=== PATIENT | female | born 1980 | race Caucasian/White ===

== ENCOUNTER 2025-04-19 14:13 | Emergency (ER) | payer OTHER, SELFPAY ==
--- NOTE | ~2025-04-19 | CT_ITS ---
EXAMINATION: CT brain wo con COMPARISON: None HISTORY: HEADACHE/ANXIETY TECHNIQUE: Axial images were obtained through the brain without IV contrast. CT scan performed using dose optimization techniques including the following automated exposure control; adjustment of mA and/or kV; use of iterative reconstruction technique. Automatic exposure control was used to reduce radiation dose. Permanent radiation dose record is archived to PACS. FINDINGS: Adjacent to the left temporal lobe probable arachnoid cyst measures 2.5 x 2 cm, no acute infarct or hemorrhage, no midline shift. Mastoid air cells unremarkable. Sinuses and orbits unremarkable. No acute fracture. No significant facial or scalp soft tissue swelling evident. No radiopaque foreign body is seen. Impression: 1.No acute intracranial abnormality. Reviewed, dictated and finalized at location A. Impression: 1.No acute intracranial abnormality.
[2025-04-19 14:27] VITALS: BP 144/90; PULSE 135; RESP 24; TEMP 36.6; O2SAT 100
--- NOTE | 2025-04-19 14:28 | ECG_ITS ---
Test Date: 2025-04-19 14:36:48 Measurements Intervals [place] Rate: 129 P: 0 MO: 0 QRS: 84 QRSD: 106 T: 45 QT: 389 QTc: 570 Interpretive Statements CHALLENGING INTERPRETATION WITH BASELINE MOTION ARTIFACT SINUS TACHYCARDIA NONSPECIFIC ST AND T-WAVE ABNORMALITY ABNORMAL ECG No previous ECG available for comparison Electronically Signed On 04-20-2025 08:29:50 CDT by Bernardino Oneill M.D.
--- OUTSIDE RECORDS SUMMARY | 2025-04-19 15:15 | XMS_ITS | Clinical Summary ---
Author Organization [facility] Address [address] [place] [address] Care Team Providers Care Railway Patrol Officer Name Role Phone Dara Romero NP Primary Care Provider [phone] Allergies Active Allergy Reactions Criticality Noted Date Comments Sulfa Antibiotics Hives 08/19/2022 Medications * This document contains information received from the source organization and may not represent a complete record from that organization. omega-3 fatty acid (FISH OIL) 500 MG capsule Take 1 capsule (500 mg total) by mouth daily. Active lactobacillus (FLORANEX) tablet Take 1 tablet by mouth daily. Active multi vitamin/mineral s (THERA-M ENHANCED) tablet Take 1 tablet by mouth daily. Active hydrOXYzine (ATARAX) 25 MG tablet Take 1 tablet (25 mg total) by mouth nightly at bedtime. 02/09/2024 Active chlordiazePOXID E (LIBRIUM) 25 MG capsuleIndicati ons:Alcohol abuse 25 mg 4 times daily x 7 days followed by 25 mg three times daily for 7 days and then 25 mg twice daily for 7 days and then 25 mg daily 70 capsule 03/26/2024 Active Active Problems Problem Noted Date Diagnosed Date Acute hyperactive alcohol wi thdrawal delirium ([facility]) 03/26/2024 Alcohol withdrawal ([facility]) 03/14/2024 Alcohol abuse 05/16/2023 Other depression 05/16/2023 Chronic rhinosinusitis 09/01/2021 Anxiety 09/22/2020 Overview (09/22/2020): No panic attacks, anxiety. No guilty. No SI Assessment & Plan (09/22/2020 2:28 PM BAND SAW MARKER): Will check CBC and TSH. Will consider clonazepam low-dose as needed Resolved Problems Problem Noted Date Diagnosed Date Resolved Date Sore throat 06/08/2021 09/01/2021 Overview (06/08/2021): For 6 days. Chills. Painful swallowing. PND Assessment & Plan (06/08/2021 12:51 PM BAND SAW MARKER): Will start antibiotics since she is not better within a week Pain in a tooth or teeth 02/05/202103/2021 Overview (02/05/2021): Not better with amoxicillin. No F/C Assessment & Plan (02/05/2021 7:15 PM CDT): Likely from sinus infection Acute maxillary sinusitis 02/05/2021 Assessment & Plan (06/08/2021 12:51 PM BAND SAW MARKER): Sinus tenderness. Prior history of sinusitis in the past Assessment & Plan (02/05/2021 7:15 PM CDT): Will start clindamycin. Continue amoxicillin SOB (shortness of breath) 09/22/2020 Overview (09/22/2020): For 5 days. SOB with exertion for 2 days. Chest pressure for 1 minute. No sick contacts Assessment & Plan (09/22/2020 2:29 PM BAND SAW MARKER): Unclear. Will check CBC, TSH and CMP and chest x-ray. Cervical cancer screening 09/22/2020 Overview (09/22/2020): Done by phytochemistry professor last summer Immunizations Immunization Administration Dates Next Due Fluzone 6 Months+ Quad (0.5 mL Prefilled Syringe) 08/19/2022(Deferred: Patient Refused) Influenza (Generic) 06/07/2016,05/05/2015,2012 Tdap (Generic) 06/03/2012 Family History Medical History Relation Comments Cancer Neg Hx Relation Status Comments Father Alive Mother Alive Social History Tobacco Use Types Packs/Day Years Used Date Smoking Tobacco: Never Smokeless Tobacco: Never Tobacco Cessation:Counseling Given: Not Answered Comments:non smoker Alcohol Use Standard Drinks/Week Comments Yes 0 (1 standard drink = 0.6 oz pure alcohol) Drink 5 or more drinks at a time. Fireball. Doesn't drink daily per patient. [id number] Health Literacy Answer Date Recor ded How often do you need to hav e someone help you when you read instructions, pamphlets, or other written material from your doctor or pharmacy? Never 03/26/2024 [facility] Utilities Answer Date Recorded In the past 12 months has e [employer], gas, oil, or water [employer] threatened to shut off services in your home? No 03/26/2024 Humiliation, Afraid, Rape, and Kick questionnair e Answer Date Recorded Within the last year, have y ou been afraid of your partner or ex-partner? No 03/26/2024 Within the last year, have y ou been humiliated or emotionally abused in other ways by your partner or ex-partner? No Within the last year, have y ou been kicked, hit, slapped, or otherwise physically hurt by your partner or ex-partner? No 03/26/2024 Within the last year, have y ou been raped or forced to have any kind of sexual activity by your partner or ex-partner? No 03/26/2024 Social Connection and Isolat ion Panel [NHANES] Answer Date Recorded In a typical week, how many times do you talk on the phone with family, friends, or neighbors? More than three times a week 03/26/2024 How often do you get togethe r with friends or relatives? More than three times a week 03/26/2024 How often do you attend chur ch or orthodoxy services? More than 4 times per year 03/26/2024 Do you belong to any clubs o r organizations such as jain groups, unions, fraternal or athletic groups, or school groups? No 03/26/2024 How often do you attend meet ings of the clubs or organizations you belong to? Never 03/26/2024 Are you , , di vorced, , never , or living with a partner? 03/26/2024 AUDIT-C Answer Date Recorded Q1: How often do you have a drink containing alcohol? 4 or more times a week 03/21/2024 Q2: How many drinks containi ng alcohol do you have on a typical day when you are drinking? 5 or 6 Q3: How often do you have si x or more drinks on one occasion? Daily or almost daily 03/21/2024 Overall Financial Resource Strain (CARDIA) Answe r Date Recorded How hard is it for you to pa y for the very basics like food, housing, medical care, and heating? Not hard at all 03/26/2024 PHQ-2 Answer Date Recorded Patient Health Questionnaire-2 Score 0 05/23/2023 [facility] - Occupational Stress Questionnaire Answer Date Recorded Do you feel stress - tense, restless, nervous, or anxious, or unable to sleep at night because your mind is troubled all the time - these days? Rather much 03/26/2024 Exercise Vital Sign Answer Date Recorde d On average, how many days pe r week do you engage in moderate to strenuous exercise (like a brisk walk)? 5 days 03/21/2024 On average, how many minutes do you engage in exercise at this level? 50 min 03/21/2024 Hunger Vital Sign Answer Date Recorded Within the past 12 months, y ou worried that your food would run out before you got the money to buy more. Never true 03/26/20 24 Within the past 12 months, t he food you bought just didn't last and you didn't have money to get more. Never true 03/26/2024 PRAPARE - Transportation Answer Date Re corded In the past 12 months, has l ack of transportation kept you from medical appointments or from getting medications? No 03/02 In the past 12 months, has l ack of transportation kept you from meetings, work, or from getting things needed for daily living? No 03/26/2024 Housing Stability Vital Sign Answer Celso e Recorded In the last 12 months, was t here a time when you were not able to pay the mortgage or rent on time? No 03/26/2024 In the past 12 months, how m any times have you moved where you were living? 0 03/26/2024 [facility] were you [facility] or living in a halfway (including now)? No 03/26/2024 Comments No Sex and Gender Information Value Date Recorded Sex Assigned at Not on file Legal Sex Female 11:25 PM BAND SAW MARKER Gender Identity Not on file Sexual Orientation Not on file Last Filed Vital Signs Vital Sign Reading Time Taken Comments Blood Pressure 110/76 03/30/2024 7:51 AM CDT Pulse 66 03/30/2024 7:51 AM CDT Temperature 36.5 C (97.7 F) 03/30/2024 7:51 AM CDT Respiratory Rate 18 03/30/2024 7:51 AM CDT Oxygen Saturation 100% 03/30/2024 7:51 AM CDT Inhaled Oxygen Concentration - - Weight 52.2 kg (115 lb) 03/26/2024 1:00 PM CDT Height 167.6 cm (5' 6) 03/26/2024 1:00 PM CDT Body Mass Index 18.56 03/26/2024 1:00 PM CDT Plan of Treatment Health Maintenance Due Date Last Done Comments Cervical Cancer Screening Pa p Smear (Age 30 to 64) Every 3 Years 1978 Colorectal Cancer Screening Colonoscopy (10 Years) 1978 Hepatitis B Vaccines (1 of 3 - 19+ 3-dose series) 1997 DTaP, Tdap and Td Vaccines ( 2 - Td or Tdap) 06/03/2022 06/03/2012 Annual Physical 08/31/2022 08/31/2021 Mammogram Screening 05/14/2023 05/14/2021 PHQ-2 (Physician [place]) 08/01/2024 05/23/2023 COVID-19 Vaccine ( - 2023-2 5 season) 2025 Cervical Cancer Screening Pa p with HPV Testing (Age 30 to 64) Every 5 Years 05/14/2026 05/14/2021 Cervical Cancer Screening with HPV 05/14/2026 Hepatitis C 08/19/2052 Postponed from 01/07/1996 (Patient Refused) Meningococcal B Vaccine Aged Out No l onger eligible based on patient's age to complete this topic Meningococcal Vaccine Aged Out No shaina marichuy eligible based on patient's age to complete this topic Pneumococcal Vaccine: Pediat rics (0 to 5 Years) and At-Risk Patients (6 to 49 Years) Aged Out No longer eligi ble based on patient's age to complete this topic RSV Immunizations Under 20 Months Aged Out No longer eligible based on patient's age to complete this topic Goals Goal Patient Goal Type Associated Problems Recent Progress Patient-Stated? Author Safety Patient/family will have appropriate support at home upon discharge Lifestyle No Yoel Sarah, marine equipment engineer - family caregiver with be involved in care transitions and discharge planning Lifestyle No Yoel Sarah, RN Patient will return to prior living situation and remain independent in ADLs upon discharge from hospital Lifestyle No Yoel Sarah, hide cleaner Procedure Name Priority Date/Time Associated Diagnosis Comments OUTSIDE CYTOPATH CERV/VAG INTERPRET (PAP) 05/14/2021 MAMMOGRAM GENERIC (SCAN ORDER) 05/14/2021 from Last 3 Months or Most Recently Relevant to Health Maintenance Results * OUTSIDE CYTOPATH VAG/CERV PAP WITH HPV (05/14/2021) 05/14/2021 Narrative 05/14/2021 Ordered by an unspecified provider. us Documents Scanned SCANNING Final Result * MAMMOGRAM GENERIC (05/14/2021) Anatomical Region Laterality Modality Other 05/14/2021 Narrative 05/14/2021 Ordered by an unspecified provider. us Documents Scanned SCANNING Final Result from Last 3 Months or Most Recently Relevant to Health Maintenance Insurance [employer] [facility] Advance Directives * Full Code (Latest Code Status on File) Date Activated Date Inactivated Comments 03/26/2024 1:08 PM 03/30/2024 1:54 PM * Full Code Date Activated Date Inactivated Comments 03/21/2024 3:56 PM 03/26/2024 12:17 PM * Full Code Date Activated Date Inactivated Comments 03/14/2024 3:37 AM 03/15/2024 10:02 AM Care Teams Railway Patrol Officer Relationship Specialty Start Date End Date Dara Romero NP [address] [place] [address] PCP - General NURSE PRACTITIONER 08/31/21
--- OUTSIDE RECORDS SUMMARY | 2025-04-19 15:15 | XMS_ITS | Encounter Summary ---
Author Organization [facility] Address [address] [place] [address] Care Team Providers Care Pulp Beater Name Role Phone Dara Romero NP Primary Care Provider [phone] Encounter Details Date Type Department Care Team (Late st Contact Info) Description 01/03/2023 Meshfire Message Enc [facility] Medical Group MultiSpecialty [facility] [address] [place] [phone] Myclee ann, [facility] Provider refill Social History Tobacco Use Types Packs/Day Years Used Date Smoking Tobacco: Never Smokeless Tobacco: Never Comments:non smoker Alcohol Use Standard Drinks/Week Comments Yes 0 (1 standard drink = 0.6 oz pur e alcohol) occasionally PHQ-2 Answer Date Recorded Patient Health Questionnaire-2 Score 1 08/19/2022 Comments No Sex and Gender Information Value Date Recorded Sex Assigned at Not on file Legal Sex Female 11:25 PM PAINT MIXER Gender Identity Not on file Sexual Orientation Not on file COVID-19 Exposure Response Date Recorded In the last 10 days, have yo u been in contact with someone who was confirmed or suspected to have Coronavirus/COVID-19? No / Unsure 01/04/2023 8:25 PM CDT documented as of this encounter Functional Status * Calculated C-SSRS Risk Score (Lifetime/Recent) Answer Date of Assessment Author Status No Risk Indicated 01/04/2023 3:48 PM CDT Adri Chaudhry RN Active * Mccormick Suicide Severity Rating Scale (Screener/Recent Self-Report) Question Answer Date of Assessment Author Status 1. Wish to be (Past 1 Month) No 01/04/2023 3:48 PM CDT Yesika Chaudhry RN Act adrianna 2. Non-Specific Active Suicidal Thoughts (Past 1 Month) No 01/04/2023 3:48 PM Yesika Martin RN Act adrianna 6. Suicidal Behavior (Lifetime) No 01/04/2023 3:48 PM CDT Yesika Chaudhry RN Act adrianna documented as of this encounter Plan of Treatment Not on file documented as of this encounter Visit Diagnoses Not on filedocumented in this encounter Additional Health Concerns Assessment Noted Time PHQ-9 Depression Total Score: 0 08/31/19 4:11 PM PAINT MIXER documented as of this encounter Care Teams Pulp Beater Relationship Specialty Start Date End Date Dara Romero NP [address] [place] [address] PCP - General NURSE PRACTITIONER 08/31/21 documented as of this encounter
--- OUTSIDE RECORDS SUMMARY | 2025-04-19 15:15 | XMS_ITS | Encounter Summary ---
Author Organization [facility] Address [address] [place] [address] Care Team Providers Care Building Rigger Name Role Phone Dara Romero NP Primary Care Provider [phone] Encounter Details Date Type Department Care Team (Late st Contact Info) Description 04/18/2023 [place] Message Enc [facility] Medical Group MultiSpecialty [address] [phone] [place], [facility] Provider Follow up appt. Social History Tobacco Use Types Packs/Day Years [...] on file Legal Sex Female 11:25 PM FACILITIES ENGINEER Gender Identity Not on file Sexual Orientation Not on file documented as of this encounter Plan of Treatment Not on file documented as of this encounter Visit Diagnoses Not on filedocumented in this encounter Additional Health Concerns Assessment Noted Time PHQ-9 Depression Total Score: 0 08/31/19 22 4:11 PM FACILITIES ENGINEER documented as of this encounter Care Teams Building Rigger Relationship Specialty Start Date End Date Dara Romero NP [address] [place] [address] PCP - General NURSE PRACTITIONER 08/31/21 documented as of this encounter
--- OUTSIDE RECORDS SUMMARY | 2025-04-19 15:15 | XMS_ITS | Encounter Summary ---
Author Organization [facility] Address [address] [place] [address] Care Team Providers Care Clinical Laboratory Director Name Role Phone Dara Romero NP Primary Care Provider [phone] Encounter Details Date Type Department Care Team (Latest Contact Info) Description 03/07/2023 [id number] Enc [facility] Medical Group MultiSpecialty [facility] [address] [place] [phone] [facility] Medication refill request Social History Tobacco Use Types Packs/Day Years [...] on file Legal Sex Female 11:25 PM COMMERCIAL TIRE SERVICE TECHNICIAN Gender Identity Not on file Sexual Orientation Not on file documented as of this encounter Progress Notes * PAIGE Christine - 03/08/2023 12:09 PM CDT She would not be due for the alprazolam until 03/24. per Dara Romero, She missed her 03/01 appointment so has broken her contract. Will need to get her controlled substances elsewhere. * Casandra Major MA - 03/08/2023 9:05 AM CDT Go to [employer] msg to see all of the note together with patient response. * Casandra Major MA - 03/08/2023 9:04 AM CDTFrom: Casandra Emanuel To: Todd Chowdhury Sent: 03/07/2023 11:50 AM CDT Subject: Medication refill request Dara Romero NP3 days ago She was suppose to see me on 03/01 and unfortunately no-showed for that visit. That actually violatesthe controlled substance agreement she signed with me in August for prescribing the Xanax, so I cannot prescribe that for her any longer. Looking at the PDMP, it doesn't look like the med was dispensed every 30 days so she must not have been taking it daily. documented in this encounter Plan of Treatment Not on file documented as of this encounter Visit Diagnoses Not on filedocumented in this encounter Additional Health Concerns Assessment Noted Time PHQ-9 Depression Total Score: 0 08/31/19 22 4:11 PM COMMERCIAL TIRE SERVICE TECHNICIAN documented as of this encounter Care Teams Clinical Laboratory Director Relationship Specialty Start Date End Date Dara Romero NP [address] [place] [address] PCP - General NURSE PRACTITIONER 08/31/21 documented as of this encounter
--- OUTSIDE RECORDS SUMMARY | 2025-04-19 15:15 | XMS_ITS | Clinical Summary ---
Author Organization [facility] [employer] Address [address] [place] [address] Care Team Providers Care Meter Supervisor Name Role Phone Unavailable Primary Care Provider Unavailabl e Source Comments [facility],non-owned Affiliates and Associated Physician Practices is amultiple site organization consisting of ambulatory clinics and hospital sitesin [place], [place], [place] and [place]. This disclosure is being madepursuant to the Care Everywhere program and may not contain all information available regarding this patient. Last updated 18.[facility] Allergies No known active allergies Medications * Be aware that medications may not be up to date on this document. Alwaysverify current medications with the patient. fish oil/omega-3 fatty acids (Promega;Cardi -[place] 3) 1000 MG capsule Take 1 (one) capsule by mouth once daily Active acetaminophen (Tylenol) 500 MG tablet Take 1 (one) tablet to 2 (two) tablets by mouth every 4 hours as needed for Fever or Pain Maximum allowable Acetaminophen amount = 4 Grams (4000 mg) / 24 hours. Active Active Problems Problem Noted Date Diagnosed Date Alcohol withdrawal syndrome with complication Encounters Date Type Department Care Team Description 03/07/2025 9:40 PM CDT - 03/13/2025 8:09 PM CDT Hospital Encounter [facility] 3 Intermediate Care Unit [address] [place] [address] Bernardino Novoa MD Tanguturi, Swetha, MD Al-Hamati, Mohammed I, MD Wingate, Colleen M, DO Pardo, Leopoldo Santos III, MD Internal Medicine Discharge Disposition: Home or Self Care 03/07/2025 Travel from Last 3 Months Social History Tobacco Use Types Packs/Day Years Used Date Smoking Tobacco: Never Smokeless Tobacco: Current Tobacco Cessation:Ready to Q uit: Not Asked; Counseling Given: Not Answered Alcohol Use Standard Drinks/Week Comments Yes 0 (1 standard drink = 0.6 oz pure alcohol) 6-7 glasses of hard liquor daily AUDIT-C Answer Date Recorded Q1: How often do you have a drink containing alcohol? 4 or more times a week 03/07/2025 Q2: How many drinks containi ng alcohol do you have on a typical day when you are drinking? 7 to 9 Q3: How often do you have si x or more drinks on one occasion? Daily or almost daily 03/07/2025 Overall Financial Resource Strain (CARDIA) Answe r Date Recorded How hard is it for you to pa y for the very basics like food, housing, medical care, and heating? Not hard at all 03/08/2025 [facility] - Occupational Stress Questionnaire Answer Date Recorded Do you feel stress - tense, restless, nervous, or anxious, or unable to sleep at night because your mind is troubled all the time - these days? Not at all 03/08/2025 Hunger Vital Sign Answer Date Recorded Within the past 12 months, y ou worried that your food would run out before you got the money to buy more. Never true 03/08/20 25 Within the past 12 months, t he food you bought just didn't last and you didn't have money to get more. Never true 03/08/2025 PRAPARE - Transportation Answer Date Re corded In the past 12 months, has l ack of transportation kept you from medical appointments or from getting medications? No 03/2025 In the past 12 months, has l ack of transportation kept you from meetings, work, or from getting things needed for daily living? No 03/08/2025 Housing Stability Vital Sign Answer Celso e Recorded In the last 12 months, was t here a time when you were not able to pay the mortgage or rent on time? No 03/08/2025 In the past 12 months, how m any times have you moved where you were living? 1 03/08/2025 At any time in the past 12 m [facility], were you homeless or living in a alf (including now)? No 03/08/2025 Comments Unknown Sex and Gender Information Value Date Recorded Sex Assigned at Not on file Legal Sex Female 5:26 AM [employer]EDIT [employer]ION EXAMIN[employer] Gender Identity Not on file Sexual Orientation Not on file Last Filed Vital Signs Vital Sign Reading Time Taken Comments Blood Pressure 128/77 03/13/2025 2:49 PM CDT Pulse 102 03/13/2025 2:49 PM CDT Temperature 36.7 C (98 F) 03/13/2025 2:49 PM CDT Respiratory Rate 18 03/13/2025 2:49 PM CDT Oxygen Saturation 98% 03/13/2025 2:49 PM CDT post gait Inhaled Oxygen Concentration - - Weight 58 kg (127 lb 13.9 oz) 03/08/2025 11:42 A M CDT Height 167.6 cm (5' 6) 03/08/2025 11:42 AM CDT Body Mass Index 20.64 03/08/2025 11:42 AM CDT Plan of Treatment Health Maintenance Due Date Last Done Comments COLOGUARD (AGES 45-75) - COL ON CA SCREENING 1978 COLON MONITORING 1978 COLONOSCOPY - COLON CA SCREENING 1978 CT COLONOGRAPHY - COLON CA SCREENING 1978 Colorectal Cancer Screening 1978 FIT - COLON CA SCREENING 1978 FLEX SIG - COLON CA SCREENING 1978 LIPID TESTING 1978 HIV SCREENING 1993 HEPATITIS C SCREENING 01/02/1996 DTAP/TDAP/TD VACCINES (1 - Tdap) 1997 HEPATITIS B VACCINE (1 of 3 - 19+ 3-dose series) 1997 PAP SMEAR 1999 MAMMOGRAM 05/14/2023 05/14/2021 DEPRESSION SCREENING 08/01/2024 COVID-19 VACCINE ( - 2023-2 5 season) 2025 INFLUENZA VACCINE (#1) 2025 6, 05/05/2015, 05/03/2013 ZOSTER VACCINE (1 of 2) 01/07/2028 HIB VACCINE Aged Out No longer eligi ble based on patient's age to complete this topic HPV VACCINE Aged Out No longer eligi ble based on patient's age to complete this topic MENINGOCOCCAL (Group B) VACCINE SHARED DECISION-MAKING Aged Out No longer eligible based on patient's age to complete this topic MENINGOCOCCAL GROUPS A/C/Y/W VACCINE Aged Out No longer eligible b ased on patient's age to complete this topic PNEUMOCOCCAL VACCINE Aged Out No long er eligible based on patient's age to complete this topic Procedures Procedure Name Priority Date/Time Associated Diagnosis Comments CBC W AUTO DIFFERENTIAL AM Draw 03/12/2025 4:12 AM CDT PHOSPHORUS BLOOD AM Draw 03/12/2025 4:12 AM CDT MAGNESIUM BLOOD Routine 03/12/2025 4:12 AM CDT COMPREHENSIVE METABOLIC PANEL AM Draw 03/12/2025 4:12 AM CDT PHOSPHORUS BLOOD AM Draw 03/10/2025 3:40 AM CDT MAGNESIUM BLOOD Routine 03/10/2025 3:40 AM CDT COMPREHENSIVE METABOLIC PANEL AM Draw 03/10/2025 3:40 AM CDT CBC W AUTO DIFFERENTIAL AM Draw 03/10/2025 3:40 AM CDT PHOSPHORUS BLOOD AM Draw 03/09/2025 4:33 AM CDT MAGNESIUM BLOOD Routine 03/09/2025 4:33 AM CDT COMPREHENSIVE METABOLIC PANEL AM Draw 03/09/2025 4:33 AM CDT CBC W AUTO DIFFERENTIAL AM Draw 03/09/2025 4:33 AM CDT CARDIAC EKG ORDER 03/09/2025 12: 50 AM CDT DRUG ABUSE URINE PANEL STAT 03/08/2025 9:39 AM CDT TROPONIN-I HIGH SENSITIVE REFLEX 1HOUR Timed 03/08/2025 12:35 AM CDT HCG BLOOD QUALITATIVE STAT 03/08/2025 12:35 AM CDT DRUG SCREEN TOX LIMITED BLD PNL 3 INHOUSE STAT 03/07/2025 10:21 PM CDT TROPONIN-I HIGH SENSITIVE BASELINE + 1HR STAT 03/07/2025 10:21 PM CDT MAGNESIUM BLOOD STAT 03/07/2025 10:21 PM CDT LIPASE BLOOD STAT 03/07/2025 10:21 PM CDT COMPREHENSIVE METABOLIC PANEL STAT 03/07/2025 10:21 PM CDT CBC W AUTO DIFFERENTIAL STAT 03/07/2025 10:21 PM CDT EKG 12-LEAD STAT 03/07/2025 9:45 PM CDT Alcohol withdrawal syndrome with complication (HCC) from Last 3 Months Results * (ABNORMAL) CBC W AUTO DIFFERENTIAL (03/12/2025 4:12 AM CDT) Only the most recent of4 resultswithin the time period is included. Pathologist [facility] WBC 10.6 4.0 - 10.7 x10E9/L 03/12/2025 4:20 AM CDT [facility] RBC Count 4.35 3.90 - 5.20 x10E12/L 03/12/2025 4:20 AM CDT [facility] Hemoglobin 13.0 11.9 - 15.8 g/dL 03/12/2025 4:20 AM CDT [facility] Hematocrit 37.4 34.8 - 46.1 % 03/12/2025 4:20 AM CDT [facility] MCV 86.0 80.0 - 98.0 fL 03/12/2025 4:20 AM CDT [facility] MCH 29.9 26.7 - 33.6 pg 03/12/2025 4:20 AM CDT [facility] MCHC 34.8 31.7 - 36.3 g/dL 03/12/2025 4:20 AM CDT [facility] RDW-CV 12.1 11.3 - 14.8 % 03/12/2025 4:20 AM [facility] Platelet Count 157 150 - 420 x10E9/L 03/12/2025 4:20 AM [facility] MPV 11.6(H) 7.8 - 11.4 fL 03/12/2025 4:20 AM [facility] Neutrophil % 81.3(H) 41.0 - 74.0 % 03/12/2025 4:20 AM [facility] Lymphocyte % 11.0(L) 17.0 - 47.0 % 03/12/2025 4:20 AM [facility] Monocyte % 6.1 3.0 - 11.0 % 03/12/2025 4:20 AM [facility] Eosinophil % 0.9 0.0 - 7.0 % 03/12/2025 4:20 AM [facility] Basophil % 0.4 0.0 - 1.6 % 03/12/2025 4:20 AM [facility] Immature Granulocytes % 0.3 0.0 - 1.0 % 03/12/2025 4:20 AM [facility] Neutrophil Absolute 8.62(H) 1.60 - 7.50 x10E9/L 03/12/2025 4:20 AM [facility] Lymphocyte Absolute 1.17 1.00 - 4.40 x10E9/L 03/12/2025 4:20 AM [facility] Monocyte Absolute 0.65 0.15 - 1.00 x10E9/L 03/12/2025 4:20 AM [facility] Eosinophil Absolute 0.10 0.00 - 0.60 x10E9/L 03/12/2025 4:20 AM [facility] Basophil Absolute 0.04 0.00 - 0.13 x10E9/L 03/12/2025 4:20 AM [facility] Blood BLOOD SPECIMEN / Unknown Lab Venipuncture / Unknown 03/12/2025 4:12 AM CDT 03/12/2025 4:18 AM T Yue Caceres PA-C LAB - HEMATOLOGY ORDERAB LES Final Result [facility] [address] [id number] * (ABNORMAL) COMPREHENSIVE METABOLIC PANEL (03/12/2025 4:12 AM CDT) Only the most recent of4 resultswithin the time period is included. Glucose 103(H) 70 - 99 mg/dL 03/12/2025 4:40 AM CDT [facility] Sodium 135(L) 136 - 145 mmol/L 03/12/2025 4:40 AM T [facility] Potassium 3.3(L) 3.5 - 5.1 mmol/L 03/12/2025 4:40 AM CDT [facility] Chloride 103 98 - 107 mmol/L 03/12/2025 4:40 AM [facility] CO2 19(L) 22 - 29 mmol/L 03/12/2025 4:40 AM T [facility] Calcium 8.6 8.4 - 10.4 mg/dL 03/12/2025 4:40 AM [facility] Anion Gap 13 6 - 16 mmol/L 03/12/2025 4:40 AM T [facility] BUN 17 5.3 - 18.7 mg/dL 03/12/2025 4:40 AM [facility] Creatinine 0.60 0.57 - 1.11 mg/dL 03/12/2025 4:40 AM [facility] Alkaline Phosphatase 96 40 - 150 U/L 03/12/2025 4:40 AM CDT [facility] ALT 11 6 - 57 U/L 03/12/2025 4:40 AM [facility] AST 20 10 - 48 U/L 03/12/2025 4:40 AM [facility] Protein Total 7.0 6.4 - 8.3 gm/dL 03/12/2025 4:40 AM [facility] Albumin 3.7 3.1 - 4.5 gm/dL 03/12/2025 4:40 AM [facility] Bilirubin Total 0.6 0.2 - 1.2 mg/dL 03/12/2025 4:40 AM [facility] eGFR by CKD-EPI >90 >=90 mL/min/1.7 3 m2 03/12/2025 4:40 AM CDT [facility] Comment:Estimated Glomerular Filtration Rate (eGFR) calculated using the CKD-EPI Creatinine Equation (2020), per the National Kidney Foundation and [place] [employer] Nephrology recommendations. Blood BLOOD SPECIMEN / Unknown Lab Venipuncture / Unknown 03/12/2025 4:12 AM CDT 03/12/2025 4:18 AM CDT Yue Caceres PA-C LAB - CHEMISTRY ORDERABL ES Final Result [facility] [address] [place] [address] * PHOSPHORUS BLOOD (03/12/2025 4:12 AM CDT) Only the most recent of3 resultswithin the time period is included. Phosphorus 2.6 2.5 - 4.5 mg/dL 03/12/2025 4:40 AM CDT [facility] Blood BLOOD SPECIMEN / Unknown Lab Venipuncture / Unknown 03/12/2025 4:12 AM CDT 03/12/2025 4:18 AM CDT Yue Caceres PA-C LAB - CHEMISTRY ORDERABL ES Final Result [facility] [address] [place] [address] * MAGNESIUM BLOOD (03/12/2025 4:12 AM CDT) Only the most recent of4 resultswithin the time period is included. Magnesium 1.8 1.6 - 2.6 mg/dL 03/12/2025 4:40 AM CDT [facility] Blood BLOOD SPECIMEN / Unknown Lab Venipuncture / Unknown 03/12/2025 4:12 AM CDT 03/12/2025 4:18 AM CDT Yue Caceres PA-C LAB - CHEMISTRY ORDERABL ES Final Result [facility] [address] [id number] * CARDIAC EKG ORDER (03/09/2025 12:50 AM CDT) Narrative 03/09/2025 12:50 AM CDT Ordered by an unspecified provider. us Scanned Document CARDIAC SERVICES ORDERABLES Fin al Result * (ABNORMAL) DRUG ABUSE URINE PANEL (03/08/2025 9:39 AM CDT) Pathologist [facility] Amphetamines Screen Urine Not detected Not detected 03/08/2025 10:24 AM CDT [facility] Barbiturates Screen Urine Detected(A) Not detected 03/08/2025 10:24 AM CDT [facility] Benzodiazepines Screen Urine Detected(A) Not detected 03/08/2025 10:24 AM T [facility] Cocaine Screen Urine Not detected Not detected 03/08/2025 10:24 AM CDT [facility] Fentanyl Urine Not detected Not detected 03/08/2025 10:24 AM CDT [facility] Methadone Screen Urine Not detected Not detected 03/08/2025 10:24 AM T [facility] Opiate Screen Urine Not detected Not detected 03/08/2025 10:24 AM CDT [facility] Phencyclidine Screen Urine Not detected Not detected 03/08/2025 10:24 AM T [facility] Urine URINE / Unknown Collection / Unknown 03/08/2025 9:39 AM CDT 03/08/2025 9:47 AM CDT Narrative [facility] - 03/08/2025 10:24 AM CDT This drug screen is designed for MEDICAL purposes only. It is not to be used for legal purposes, including but not limited to worker's comp, police investigations, occupational issues, child custody, etc. Any positive result is only presumptive and must be confirmed with a separate confirmatory test ordered by the physician. Drug Screening Test Cutoff Values: AMPHETAMINES 1000 ng/mL BARBITURATES 200 ng/mL BENZODIAZEPINES 200 ng/mL COCAINE 300 ng/mL FENTANYL 1.5 ng/mL METHADONE 300 ng/mL OPIATES 300 ng/mL PHENCYCLIDINE(PCP) 25 ng/mL Bernardino Novoa MD LAB - URINE CHEMISTRY ORDER NYLA Final Result Performing Organization Address [facility] de Phone Number [facility] [address] [id number] * TROPONIN-I HIGH SENSITIVE REFLEX 1HOUR (03/08/2025 12:35 AM CDT) [facility] Troponin I High Sensitive <3 <=14 ng/L 03/08/2025 1:20 AM CDT [facility] Delta Troponin I HS 03/08/2025 1:20 AM CDT [facility] Comment:Delta value intentio con not calculated. Baseline to 1 hour specimen collection interval exceeded. Blood BLOOD SPECIMEN / Unknown Venipuncture / Unknown 03/08/2025 12:35 AM CDT 03/08/2025 12:55 AM CDT Bernardino Novoa MD LAB - CHEMISTRY ORDERABLES Final Result Performing Organization Address [facility] de Phone Number [facility] [address] [place] [id number] * HCG BLOOD QUALITATIVE (03/08/2025 12:35 AM CDT) [facility] HCG Qual Serum Negative Negative 03/08/2025 1:05 AM CDT [facility] Blood BLOOD SPECIMEN / Unknown Venipuncture / Unknown 03/08/2025 12:35 AM CDT 03/08/2025 12:55 AM CDT Narrative [facility] - 03/08/2025 1:05 AM CDT Specimens containing human anti-mouse antibodies may exhibit false positive or false negative results. If qualitative interpretation is inconsistent with clinical evaluation, consider confirmation by an alternative hCG method. Bernardino Novoa MD LAB - CHEMISTRY ORDERABLES Final Result Performing Organization Address [facility] Co de Phone Number [facility] [address] [place] [address] * (ABNORMAL) DRUG SCREEN TOX LIMITED BLD PNL 3 INHOUSE (03/07/2025 10:21 PM CDT) Acetaminophen <3.0(L) 10.0 - 30.0 ug/mL 03/07/2025 11:10 PM CDT [facility] Ethanol 285.6(H) <10 mg/dL 03/07/2025 11:10 PM CDT [facility] Salicylate <5.0(L) 15.0 - 30.0 mg/dL 03/07/2025 11:10 PM CDT [facility] Blood BLOOD SPECIMEN / Unknown Venipuncture / Unknown 03/07/2025 10:21 PM CDT 03/07/2025 10:30 PM CDT Narrative [facility] - 03/07/2025 11:10 PM CDT [facility] ACETAMINOPHEN COMMENT Critical values: 4 Hours Post Ingestion: Critical value > 200 g/mL 12 Hours Post Ingestion: Critical value > 50 g/mL For acute ingestion, please refer to Acetaminophen nomogram to determine the risk of toxicity based on time since ingestion and acetaminophen level (see link provided). Note the nomogram disclaimer. WARNING: Assessing the potential toxicity of an acetaminophen level on a standard risk nomogram must take into consideration many factors including any uncertainty of the time since ingestion or the possibility of other medications that may alter the peak level. Contact the [place] [facility] at or reserved for healthcare professionals to assist you in evaluating potentially toxic acetaminophen levels. us Bernardino Novoa MD LAB - CHEMISTRY ORDERABLES Final Result [facility] [address] [id number] * TROPONIN-I HIGH SENSITIVE BASELINE + 1HR (03/07/2025 10:21 PM CDT) Troponin I High Sensitive <3 <=14 ng/L 03/07/2025 10:53 PM CDT [facility] Blood BLOOD SPECIMEN / Unknown Venipuncture / Unknown 03/07/2025 10:21 PM CDT 03/07/2025 10:30 PM CDT us Bernardino Novoa MD LAB - CHEMISTRY ORDERABLES Final Result Performing Organization Address [facility] Co de Phone Number [facility] [address] [id number] * LIPASE BLOOD (03/07/2025 10:21 PM CDT) Lipase 9 <60 U/L 03/07/2025 10:51 PM CDT [facility] Blood BLOOD SPECIMEN / Unknown Venipuncture / Unknown 03/07/2025 10:21 PM CDT 03/07/2025 10:30 PM CDT us Bernardino Novoa MD LAB - CHEMISTRY ORDERABLES Final Result Performing Organization Address [facility] Phone Number [facility] [address] [id number] * EKG 12-Lead (03/07/2025 9:45 PM CDT) Ventricular Rate 99 BPM [facility] Atrial Rate 99 BPM [facility] P-R Interval 158 ms [facility] QRS Duration ms 82 ms [facility] Q-T Interval ms 360 ms [facility] QTC Calculation (Bezet) 462 ms [facility] Calculated P [place] 79 degrees [facility] Calculated R [place] 106 degrees [facility] Calculated T [place] 61 degrees [facility] Interpretation EKG Normal sinus rhythm Septal infarct , age undetermined Lateral infarct , age undetermined Abnormal ECG No previous ECGs available Confirmed by MD MOO, KARAN ([id number]) on 03/08/2025 9:46:36 PM [facility] 03/07/2025 9:45 PM CDT 03/08/2025 9:46 PM CDT us Bernardino Novoa MD ECG ORDERABLES Edited Resu lt - Final Performing Organization Address [facility] Co de Phone Number [facility] MUSE from Last 3 Months Insurance [employer] Directives * Full Code (Latest Code Status on File) Date Activated Date Inactivated Comments 03/08/2025 6:07 AM 03/13/2025 9:19 PM
[2025-04-19] MEDS: SODIUM CHLORIDE 0.9% IV 1,000 ML 999 ML IV CONT (15:21)
[2025-04-19] MEDS: ALPRAZolam (*CRX) 0.5 MG TABLET PO ×2 (15:22→16:50)
[2025-04-19 15:23] VITALS: BP 181/105; PULSE 119; RESP 21; O2SAT 100
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
[2025-04-19 16:37] VITALS: BP 136/88; PULSE 95; RESP 20; O2SAT 99
[2025-04-19 17:44] VITALS: BP 134/83; PULSE 97; RESP 20; O2SAT 98
[2025-04-19 18:13] LABS: Hematocrit 36.6 % (37.0-47.0); Hemoglobin 12.4 g/dL (12.0-15.0); Immature Granulocyte Percent A 0.6 % (0-0.5); Lymphocytes Absolute Auto 0.99 K/mm3 (0.9-3.2); Mean Corpuscular HGB Conc 33.9 g/dl (32-36); Mean Corpuscular Hemoglobin 29.7 pg (26-34); Mean Corpuscular Volume 87.6 fl (80-100); Nucleated Red Blood Cells Absolute Auto 0.000 K/mm3 (0.0-0.012); Nucleated Red Blood Cells Perc 0.0 % (0.0-0.2); Platelet Count Result 186 k/mm3 (150-375); Red Blood Count 4.18 M/mm3 (4.2-5.4); White Blood Count 10.3 K/mm3 (4.5-10.0)
[2025-04-19 18:27] LABS: INR 1.1; Prothrombin Time 14.3 Seconds (11.1-14.7)
[2025-04-19 18:28] LABS: Partial Thromboplastin Time 26.6 Seconds (22.3-36.8)
[2025-04-19 18:40] LABS: Alanine Aminotransferase 13 U/L (6-35); Albumin Level 4.0 g/dL (3.5-5.1); Alkaline Phosphatase 78 U/L (38-126); Anion Gap 7 mmol/L (4-12); Aspartate Amino Transferase 21 U/L (14-36); Bilirubin,Total 0.4 mg/dL (0.2-1.3); Blood Urea Nitrogen 5 mg/dL (7-17); Calcium 8.1 mg/dL (8.4-10.2); Carbon Dioxide 24 mmol/L (22-30); Chloride 106 mmol/L (98-107); Estimated CRCL calculation 94 ml/min; Estimated Glomerular Filt Rate > 60; Glucose 89 mg/dL (65-110); Potassium 4.0 mmol/L (3.4-5.0); Sodium 137 mmol/L (137-145); Total Protein 6.7 g/dL (6.3-8.2)
[2025-04-19 18:53] LABS: Troponin I < 0.012 ng/mL (0.000-0.034)
[2025-04-19 19:12] LABS: Cannabinoid Screen Urine Negative (Negative)
[2025-04-19 19:33] VITALS: BP 109/73; PULSE 65; RESP 18; O2SAT 99
== END 2025-04-19 19:34 | disposition home or self-care (01) ==
PROVIDERS: Emergency Provider Nurse Practitioner Family
DX: R51.9 Headache, unspecified (principal); F41.9 Anxiety disorder, unspecified; R00.0 Tachycardia, unspecified; R94.31 Abnormal electrocardiogram [ECG] [EKG]; V42.5XXA Car driver injured in collision with two- or three-wheeled motor vehicle in traffic accident, initial encounter
CPT/HCPCS: 36415; 70450; 80053; 80307; 82077; 84484; 85025; 85610; 85730; 93005; 96360; 99284; A9270; J7030